=== PATIENT | female | born 1950 | race Asian ===

== ENCOUNTER 2018-08-13 12:04 | Day surgery (SDC) | payer OTHER ==
[~2018-08-13 12:04] MED LIST: PROPOFOL 200 MG INJ
[2018-08-13] MEDS ORDERED: PROPOFOL 60 ML (13:53)
[2018-08-13] MEDS ORDERED: LIDOCAINE 2% (SDV) 5 ML INJ (13:53)
== END 2018-08-13 15:10 | disposition home or self-care (01) ==
LOC: GIL 12:04
DX: Z12.11 Encounter for screening for malignant neoplasm of colon (principal); K64.8 Other hemorrhoids
CPT/HCPCS: 45378